=== PATIENT | female | born 1945 | race Caucasian/White ===

== ENCOUNTER 2018-03-25 18:13 | Inpatient (IN) | payer SELFPAY ==
[2018-03-25] MEDS ORDERED: NS 1,000 ML IV ONE ×2 (18:38→21:43)
--- NOTE | 2018-03-25 18:39 | EDPHY ---
H & P Time Seen by Provider: 03/25/18 18:20 HPI/ROS: Chief complaint. Fever, possible UTI HPI. Patient is a 72-year-old female visiting from the [facility]. She arrived in the [facility] February 24. 1 week ago she developed flank pain and foul-smelling urine. She did not have frequency or dysuria. She developed fever today to 102 degrees. She also has a cough. Denies shortness of breath or chest discomfort. Nausea but no vomiting or diarrhea. She has upper lateral bilateral abdominal pain and flank pain. She was seen at urgent care earlier today and was diagnosed with urinary tract infection and given IM antibiotics. She however was not feeling better and then returned to urgent care and then was sent to the emergency department. No unusual leg pain or swelling. ROS 10 systems were reviewed and negative with the exception of the elements mentioned in the history of present illness Past Medical/Surgical History: Back surgeries Social History: Single, daily smoker, no alcohol Smoking Status: Current every day smoker Physical Exam: General Appearance: Alert well-developed female moderate distress vital signs show temp 37.0 degrees, respiratory rate 30, O2 saturation 91% on room air, blood pressure 134/87 Eyes: Pupils equal and round no pallor or injection. ENT, pharynx without injection. Mucous membranes are moist Respiratory: Mild tachypnea. Lungs are clear without wheezes rales or rhonchi Cardiovascular: Regular rate and rhythm. Gastrointestinal: Abdomen is soft with tenderness to both flanks Neurological: Awake and alert, sensory and motor exams grossly normal. Skin: Warm and dry, no rashes. Musculoskeletal: Neck is supple nontender. Extremities symmetrical, full range of motion. Psychiatric: Patient is oriented X 3, there is no agitation. Constitutional: Initial Vital Signs Temperature (C) 37.0 C 03/25/18 18:21 Heart Rate 96 03/25/18 18:21 Respiratory Rate 30 H 03/25/18 18:21 Blood Pressure 134/87 H 03/25/18 18:21 O2 Sat (%) 91 L 03/25/18 18:21 O2 Delivery Mode Room Air Allergies/Adverse Reactions: No Known Allergies Allergy (Unverified 03/25/18 18:30) Home Medications: Medication Instructions Recorded traMADol [Ultram 50 mg (*)] 03/25/18 Medical Decision Making - Diagnostics Imaging Results: Imaging Impressions Chest X-Ray 03/25/18 18:38 Impression: Underlying hyperinflation compatible with COPD; no acute cardiopulmonary process identified.. Chest x-ray interpreted by me shows underlying COPD but no evidence for pneumonia Procedures: IV normal saline. Sepsis workup KCL orally IV Rocephin ED Course/Re-evaluation: Point of care chemistry panel shows a potassium of 2.9 Point of care lactate is 1.6 Point of care white blood cell count is 24.3 with hemoglobin 11.2 and hematocrit 33.8 Point of care INR is 1.2 Urine dip shows leukocytes and blood--urine sent for culture Serial evaluations patient remained stable. She does continue to look ill but not toxic. Patient and I discussed imaging and lab results. We discussed treatment plan including recommendation for admission. She expresses understanding and agreement I consulted discussed case with Dr. Sanchez, hospitalist, who agrees to the admission Patient request to be transported to [facility] by private vehicle. She has a sober friend willing to drive her with her. We discussed risks and benefits of private vehicle transport. She expresses understanding and agreement Differential Diagnosis: I considered sepsis, pneumonia, urinary tract infection. I believe the patient has pyelonephritis. She also has hypokalemia - Data Points Laboratory Results: 03/25/18 03/25/18 18:52 18:49 POC Sodium 134 mEq/L L mEq/L (135-145) POC Potassium 2.9 mEq/L L mEq/L (3.3-5.0) POC Chloride 95.0 mEq/L L mEq/L (97-110) POC Total CO2 27 mEq/L mEq/L (22-31) POC BUN 13 mg/dL mg/dL (7-23) POC Creatinine 0.8 mg/dL mg/dL (0.6-1.0) POC Glucose 124 mg/dL H mg/dL (70-100) POC Lactic Acid Andrez 1.6 mmol/L mmol/L (0.7-2.1) POC Calcium 8.8 mg/dL mg/dL (8.5-10.4) Medications Given: Discontinued Medications Sodium Chloride (Ns) 1,000 mls @ 0 mls/hr IV EDNOW ONE; Wide Open PRN Reason: Protocol Stop: 03/25/18 18:39 Last Admin: 03/25/18 18:45 Dose: 1,000 mls Ondansetron HCl (Zofran) 4 mg IVP EDNOW ONE Stop: 03/25/18 19:43 Last Admin: 03/25/18 19:43 Dose: 4 mg Potassium Chloride (Klor Packets) 20 meq PO EDNOW ONE Stop: 03/25/18 19:12 Last Admin: 03/25/18 19:43 Dose: 20 meq Point of Care Test Results: CBC CBC Collection Date 03/25/18 CBC Collection Time 19:40 WBC 24.3 RBC 4.07 HGB 11.2 HCT 33.8 PLT 434 Neut # 19.7 Neut 80.9 LYMPH # 2.9 LYMPH 12.1 Other WBC # 1.7 Other WBC 7.0 MCV 83.0 Chemistry 03/25/18 18:49 POC Sodium 134 mEq/L L mEq/L (135-145) POC Potassium 2.9 mEq/L L mEq/L (3.3-5.0) POC Chloride 95.0 mEq/L L mEq/L (97-110) POC Total CO2 27 mEq/L mEq/L (22-31) POC BUN 13 mg/dL mg/dL (7-23) POC Creatinine 0.8 mg/dL mg/dL (0.6-1.0) POC Glucose 124 mg/dL H mg/dL (70-100) POC Calcium 8.8 mg/dL mg/dL (8.5-10.4) Blood Gas/Lactic Acid-Venous 03/25/18 18:52 POC Lactic Acid Andrez 1.6 mmol/L mmol/L (0.7-2.1) Departure - Departure Disposition: [facility] Acute Clinical Impression: Pyelonephritis, Hypokalemia Condition: Fair
[2018-03-25] MEDS ORDERED: POTASSIUM CL 20 MEQ PKT PO ONE (19:11)
[2018-03-25] MEDS ORDERED: ONDANSETRON 4 MG/2 ML VIAL ONE (19:36)
[2018-03-25] MEDS ORDERED: ONDANSETRON 4 MG/2 ML VIAL IVP ONE (19:42)
[2018-03-25] MEDS ORDERED: ACETAMINOPHEN 325 MG TAB PO PRN (22:22)
[2018-03-25] MEDS ORDERED: ONDANSETRON 4 MG/2 ML VIAL IVP PRN (22:22)
[2018-03-25] MEDS ORDERED: ONDANSETRON DISINTEGRATING 4 MG TAB PO PRN (22:22)
[2018-03-25] MEDS: traMADol 50 MG TAB PO PRN (23:11)
[2018-03-26] MEDS ORDERED: NS 1,000 ML IV ONE (00:04)
[2018-03-26] MEDS ORDERED: PROTOCOL POTASSIUM 1 DOSE MISC PRN (00:42)
--- NOTE | 2018-03-26 00:42 | PDGENHP ---
History and Physical - Chief Complaint Lethargy, flank pain - History of Present Illness 72 yo F w/ hx of chronic back pain presents with lethargy and flank pain. The patient is visiting from [place]. She has felt poorly for about 1 week including bilateral flank pain and progressive fatigue. She denies urinary symptoms. Her symptoms progressed to the point where today she had severe lethargy. She presented to [place] [facility] where she was given Macrobid. She did not improve so she returned to the ED. Per report (UA not available) her UA had +LE and blood. She continues to complain of bilateral flank pain and dehydration. She denies fever, chills. Case discussed with Dr. Sanchez, records reviewed and summarized above. History Information - Allergies/Home Medication List Allergies/Adverse Reactions: No Known Allergies Allergy (Unverified 03/25/18 18:30) Home Medications: traMADol [Ultram 50 mg (*)] 50 mg PO BID PRN 03/25/18 [Last Taken 03/23/18] I have personally reviewed and updated: family history, medical history - Past Medical History arthritis - Surgical History Reports: spinal surgery - Family History Additional family history: Daughter has MS - Social History Smoking Status: Current every day smoker Review of Systems Review of Systems: ROS: 10pt was reviewed & negative except for what was stated in HPI & below Physical Exam Physical Exam: Temp Pulse Resp BP Pulse Ox 36.4 C 125 H 18 126/70 H 95 03/25/18 23:25 03/25/18 23:25 03/25/18 23:25 03/25/18 23:25 03/25/18 23:25 Constitutional: appears nourished, uncomfortable Eyes: PERRL, EOMI Ears, Nose, Mouth, Throat: moist mucous membranes, no oral mucosal ulcers Cardiovascular: no murmur, rub, or gallop, tachycardia Respiratory: no respiratory distress, clear to auscultation Gastrointestinal: normoactive bowel sounds, soft, non-tender abdomen, other (+b/ l CVAT) Skin: warm, normal color Musculoskeletal: full muscle strength, no muscle tenderness Neurologic: AAOx3, CN II-XII Intact Psychiatric: interacting appropriately, not anxious Lab Data & Imaging Review POC Sodium 134 mEq/L (135-145) L 03/25/18 18:49 POC Potassium 2.9 mEq/L (3.3-5.0) L 03/25/18 18:49 POC Chloride 95.0 mEq/L (97-110) L 03/25/18 18:49 POC Total CO2 27 mEq/L (22-31) 03/25/18 18:49 POC BUN 13 mg/dL (7-23) 03/25/18 18:49 POC Creatinine 0.8 mg/dL (0.6-1.0) 03/25/18 18:49 POC Glucose 124 mg/dL (70-100) H 03/25/18 18:49 POC Lactic Acid Andrez 1.6 mmol/L (0.7-2.1) 03/25/18 18:52 POC Calcium 8.8 mg/dL (8.5-10.4) 03/25/18 18:49 Imaging Review: Imaging Impressions Chest X-Ray 03/25/18 18:38 Impression: Underlying hyperinflation compatible with COPD; no acute cardiopulmonary process identified.. Assessment & Plan Assessment: 72 yo F w/ hx of chronic back pain presents with likely pyelonephritis. Plan: 1. Sepsis 2/2 urinary source - Sepsis present on admission per 2/4 SIRS criteria (WBC 24k, HR>100). Lactate is WNL, which is reassuring. Clinical picture consistent with likely pyelonephritis noting bilateral flank pain and progressive lethargy. - CTX 1 g qD - Blood and urine cultures pending - Continue IVF until HR improves 2. Hyponatremia - Mild, likely related to infection and sepsis. - Repeat BMP after IVF 3. Hypokalemia - Will place replacement protocol. 4. Chronic back pain - With history of prior spinal surgeries. - Tramadol PRN Diet - Regular Code - Full Ppx - LMWH Dispo - Admit under inpatient status
[2018-03-26] MEDS ORDERED: NS 500 ML IV ONE ×2 (02:21→02:45)
[2018-03-26] MEDS: NS 1,000 ML IV SCH ×2 (03:32→19:57)
[2018-03-26 04:35] LABS: PLATELET COUNT 359 10^3/uL (150-400)
[2018-03-26] MEDS ORDERED: POTASSIUM CL 10 MEQ TAB PO ONE ×2 (07:40→19:14)
--- NOTE | 2018-03-26 08:33 | PDMN ---
Medical Necessity Medical necessity: [facility] M160 sepsis and other febrile illness: pt presents with lethargy, bilateral flank pain, progressive fatigue. likely pyelonephritis- WBC 24K, HR>100, hypernatremia, chronic back pain, anticipate > 2 MN ongoing med nec care, further monitoring eval and tx.
[2018-03-26] MEDS: ENOXAPARIN 40 MG/0.4 ML SYR SC SCH (09:17)
[2018-03-26] MEDS: traMADol 50 MG TAB PO PRN (09:17)
--- NOTE | 2018-03-26 13:53 | ASMTCMCOM ---
CM Note CM Note Notes: Plan of care reviewed in rounds. 72 year old female traveling with friends admitted with flank pain, elevated WBC's and weakness. She is originally from [place]. No current needs identified. CM available should needs arise. Plan: DC independently when medically cleared for discharge. Date Signed: 03/26/2018 01:53 PM Electronically Signed By:Griselda Johnson RN
--- NOTE | 2018-03-26 15:36 | HOSPPROG ---
Hospitalist Progress Note Assessment/Plan: The patient is a 72-year-old female with PMH arthritis who was admitted for acute pyelonephritis. This patient is new to me. Reviewed patient's chart/records for this visit. ASSESSMENT/PLAN: Acute pyelonephritis Sepsis, improved Hyponatremia, mild Hypokalemia, resolved Chronic back pain History of prior spinal surgeries Generalized weakness -FU blood/[id number] Cx. -IV Ceftriaxone. -IV fluids. -Check AM labs. VTE prophylaxis: Lovenox Code Status: Full code Status: Inpatient for > 2 midnight stay. Disposition: Med surg with discharge anticipated in the next 1-2 days ____ SUBJECTIVE: Today the patient is feeling better. OBJECTIVE: Physical Exam: General: The patient is an elderly female who is alert and in no acute distress. HEENT: normocephalic, extraocular movements intact, conjunctivae clear. Mucous membranes moist. Neck: trachea midline, no visible masses. CV: +S1/S2, RRR, no MRG. Resp: unlabored, CTAB no RRW. Abd: soft and nondistended. Bowel sounds present. Non tender except on left flank. Musculoskeletal: Normal muscle tone/bulk. Neuro: cranial nerves II XII grossly intact. Intact gross motor and sensory function. Psych: Appropriate mood and appropriate affect. Skin: No pallor. No petechiae. Heme/lymph: No peripheral edema at bilateral lower extremities. : No suprapubic or costovertebral tenderness. Labs/Imaging/Other Tests: Personally reviewed/interpreted. Chest x-ray-no acute cardiopulmonary process. Objective: Vital Signs Temp Pulse Resp BP Pulse Ox 36.4 C 101 H 16 105/54 L 97 03/26/18 13:08 03/26/18 13:08 03/26/18 13:08 03/26/18 13:08 03/26/18 13:08 Laboratory Results 03/26/18 04:24 03/26/18 04:24 03/25/18 03/26/18 03/27/18 05:59 05:59 05:59 Intake Total 3180 Output Total 600 500 Balance 2580 -500 - Time Spent With Patient Time Spent with Patient: greater than 35 minutes Time Spent with Patient: Greater than 35 minutes spent on this patients care, greater than 50% of time spent counseling, educating, and coordinating care regarding the above mentioned plan. ICD10 Worksheet Patient Problems: Problems Problem Status Onset Hypokalemia Acute Pyelonephritis Acute
[2018-03-26] MEDS ORDERED: POTASSIUM CL 20 MEQ PKT PO ONE (20:15)
[2018-03-27 04:47] LABS: PLATELET COUNT 378 10^3/uL (150-400)
[2018-03-27] MEDS: ENOXAPARIN 40 MG/0.4 ML SYR SC SCH (09:31)
[2018-03-27] MEDS ORDERED: IPRATROPIUM/ALBUTEROL 3 ML DEYVIAL IH PRN (11:34)
[2018-03-27] MEDS ORDERED: guaiFENesin 200 MG/10 ML UDL PO PRN (11:34)
--- NOTE | 2018-03-27 14:36 | HOSPPROG ---
Hospitalist Progress Note Assessment/Plan: The patient is a 72-year-old female with PMH arthritis who was admitted for acute pyelonephritis. ASSESSMENT/PLAN: Acute pyelonephritis, improving Sepsis, improved Hyponatremia, mild Hypokalemia, resolved Chronic back pain History of prior spinal surgeries Generalized weakness -prelim BCx/UCx negative. -IV Ceftriaxone. -DC IVF. -Check AM labs. VTE prophylaxis: Lovenox Code Status: Full code Status: Inpatient for > 2 midnight stay. Disposition: Med surg with discharge anticipated tomorrow. ____ SUBJECTIVE: Today the patient is feeling better. Still some pain in L flank. Still urinating frequently. Denies constipation. OBJECTIVE: Physical Exam: General: The patient is an elderly female who is alert and in no acute distress. HEENT: normocephalic, extraocular movements intact, conjunctivae clear. Mucous membranes moist. Neck: trachea midline, no visible masses. Resp: unlabored. Abd: soft and nondistended. Bowel sounds present. Non tender except on left flank. Musculoskeletal: Normal muscle tone/bulk. Neuro: cranial nerves II - XII grossly intact. Intact gross motor and sensory function. Psych: Appropriate mood and appropriate affect. Skin: No pallor. No petechiae. : +L flank tenderness. Labs/Imaging/Other Tests: Personally reviewed/interpreted. Chest x-ray-no acute cardiopulmonary process. Objective: Vital Signs Temp Pulse Resp BP Pulse Ox 36.7 C 97 16 110/61 96 03/27/18 12:17 03/27/18 12:17 03/27/18 12:17 03/27/18 12:17 03/27/18 12:17 Microbiology 03/27/18 11:36 Respiratory Panel (PCR) - Final Nasal, Sinus - [place] Viral Transport Coronovirus Oc43 Detected Laboratory Results 03/27/18 04:22 03/27/18 04:22 03/26/18 03/27/18 03/28/18 05:59 05:59 05:59 Intake Total 3180 1574 1027 Output Total 600 1600 1800 Balance 2580 -26 -773 - Time Spent With Patient Time Spent with Patient: greater than 35 minutes Time Spent with Patient: Greater than 35 minutes spent on this patients care, greater than 50% of time spent counseling, educating, and coordinating care regarding the above mentioned plan. ICD10 Worksheet Patient Problems: Problems Problem Status Onset Hypokalemia Acute Pyelonephritis Acute
[2018-03-27] MEDS: MULTIVITAMINS 1 EACH TAB PO SCH (16:33)
[2018-03-27] MEDS ORDERED: POTASSIUM CL 10 MEQ TAB PO ONE (23:19)
[2018-03-28 05:25] LABS: PLATELET COUNT 378 10^3/uL (150-400)
[2018-03-28 08:47] VITALS: BP 111/66
[2018-03-28] MEDS: MULTIVITAMINS 1 EACH TAB PO SCH (08:58)
[2018-03-28] MEDS: ENOXAPARIN 40 MG/0.4 ML SYR SC SCH (09:02)
--- NOTE | 2018-03-28 12:36 | PDDCSUM ---
Discharge Summary Discharge Summary: Discharge diagnosis: Acute pyelonephritis, resolving URI - coronavirus - resolving Hyponatremia, mild Chronic back pain History of prior spinal surgeries Generalized weakness, resolved Admission diagnosis: Acute pyelonephritis Hypokalemia Hyponatremia Generalized weakness Chronic back pain Hospital course: The patient is a 72yo F visiting from the who developed a UTI that had progressed into left sided pyelonephritis. She had sepsis on admission, which quickly resolved with IV fluids and IV ceftriaxone. The urine culture did not grow anything, but this test was performed after the patient had received her first dose of antibiotics in the ED. The patient remained in the hospital for several days as the patient had generalized weakness secondary to the pyelonephritis and a URI secondary to Coronavirus. She was feeling much better in a few days and was discharged to home in stable condition. She was given a prescription for Bactrim DS to continue taking for 4 more days. She was given a note explaining to the airline that she was in the hospital for a few days and needed to reschedule her flight. She is considered safe to fly and attend her upcoming cruise. Tests: Sodium on discharge - 133. Urine culture - negative for growth. Respiratory PCR panel - nasal swab - Coronavirus Oc43. Follow up: Follow up with PCP in 2 weeks. Special instructions: Take Bactrim DS twice a day for 4 days starting 03/29/18. If you have recurrent symptoms while traveling on the cruise ship, recommend you see the cruise medical auditor for a urinalysis. If you are found to have a recurrent UTI, you may take Bactrim DS twice a day for 7 days. Return to ED if symptom worsen.
--- NOTE | 2018-03-28 12:47 | ASMTLACE ---
AYADE Length of stay for Answers: 2 days current admission Acuity / Level of Answers: Yes Care: Did the patient have an inpatient admission? Comorbidities - select Answers: Opioid dependence all that apply / Chronic pain # of Emergency department Answers: 1-2 visits in the last 6 months Score: 10 Date Signed: 03/28/2018 12:47 PM Electronically Signed By:Griselda Johnson RN
--- NOTE | 2018-03-28 12:50 | ASMTDCNOTE ---
Case Management Discharge Discharge Order Complete? Answers: Yes Patient to Obtain Answers: Independently Medications Transportation Arranged Answers: Family/Friends Family Notified Answers: Yes Discharge Comments Notes: Medically cleared for discharge. No needs. Date Signed: 03/28/2018 12:49 PM Electronically Signed By:Griselda Johnson RN
== END 2018-03-28 14:10 | disposition home or self-care (01) | DRG 872 ==
LOC: CED 18:13 → CEDHOLD 20:10 → F1N 21:28
PROVIDERS: ADMIT Internal Medicine; ATTEND Internal Medicine
DX: A41.9 Sepsis, unspecified organism (principal); N10 Acute pyelonephritis; J06.9 Acute upper respiratory infection, unspecified; B97.29 Other coronavirus as the cause of diseases classified elsewhere; E87.6 Hypokalemia; E87.1 Hypo-osmolality and hyponatremia; Z23 Encounter for immunization; M54.9 Dorsalgia, unspecified
CPT/HCPCS: 71046-PO; 80048-ER; 83605-ER; 96361-ER; 96374-ER; 96375-ER; G0008; J0696; J1650; J2270; J2405